=== PATIENT | female | born 1980 | race Caucasian/White ===

== ENCOUNTER 2016-10-06 17:24 | Emergency (ER) | payer OTHER ==
[2016-10-06 17:29] VITALS: TEMP 98.1
--- NOTE | 2016-10-06 17:40 | CPEKG ---
Heart Rate: 83 RR Interval: 723 P-R Interval: 140 QRSD Interval: 90 QT Interval: 396 QTC Interval: 466 P Hudson: -7 QRS Hudson: -11 T Wave Hudson: 13 EKG Severity - NORMAL ECG - EKG Impression: SINUS RHYTHM Electronically Signed By: Ac Claros 06-Oct-2016 23:10:05
--- NOTE | 2016-10-06 17:53 | EDPHY ---
HPI/HX/ROS/PE/MDM Narrative: CHIEF COMPLAINT: Scapular and chest pain. HISTORY OF PRESENT ILLNESS: The patient is a 36-year-old female presenting with sudden onset of left scapular pain that started about 1 hour ago, at 4:30 p.m. The patient was seated in a meeting when she developed the stabbing pain in her back. She states the scapular pain feels similar to the discomfort after a laprosopic procedure. It radiated into her left jaw and down her left arm. She reports associated chest tightness, like she can't get a deep breath. She went to the urgent care at [facility] and was sent here for further evaluation. Patient additionally notes recent palpitations that occur intermittently. No recent changes in medications. No fever, chills, nausea, vomiting, diarrhea, urinary complaints, headache, lightheadedness. Patient relates a history of asthma although she has not used her inhalers for quite some time. REVIEW OF SYSTEMS: Aside from elements discussed in the HPI, a comprehensive 10-point review of systems was reviewed and is negative. 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 VITAL SIGNS: Reviewed by me GENERAL: Well-developed, well-nourished, slightly anxious appearing. HEENT: Atraumatic. Eyes: No icterus, no injection. Mouth: moist mucous membranes. No erythema or lesions. Neck: supple with no adenopathy. LUNGS: Diminished breaths sounds on the left. CARDIAC: Regular rate and rhythm, no rubs, murmurs or gallops. CHEST: No palpable chest wall tenderness. ABDOMEN: Soft, No upper abdominal tenderness. Epigastric pain. Patient does have mild right lower quadrant tenderness which she reports is chronic from her endometriosis. No guarding or rebound. BACK: No CVA tenderness. EXTREMITIES: No trauma. No edema. Range of motion is normal throughout. Radial pulses equal bilaterally. NEURO: Alert and oriented, grossly nonfocal. SKIN: Warm and dry, no rash. No diaphoresis. PSYCHIATRIC: Normal mentation, no agitation. Portions of this note were transcribed by a coroner/medical examiner. I personally performed a history, physical exam, medical decision making, and confirmed accuracy of information the transcribed note. ED Course: Patient presents with sudden onset of scapular pain that radiates into her left jaw and down her left arm. She describes a sharp, stabbing pain. She has associated chest tightness that is worse with deep inhalation. Plan for cardiac work up. Chest x-ray is consistent with airways disease. Patient received a DuoNeb as well as an albuterol treatment.. Troponin is negative. Lab work is unremarkable. 7:05 p.m.: I reevaluated the patient, her symptoms have improved after DuoNeb, she has increased air movement and reports the chest tightness has diminished. Her back pain has also improved. She continues to have some anterior chest discomfort. 7:45 p.m.: I reevaluated the patient, she is feeling better after albuterol. She no longer has left arm or anterior chest pain. I held a long discussion with the patient. This is a 36-year-old female with no cardiac risk factors (although her family history is unknown) presenting with left scapular pain radiating toward her left jaw, anterior chest tightness, and tingling in her left arm. EKG has no ischemic changes. Troponin is negative. Chest x-ray is consistent with airways disease. Patient did have a albuterol neb as well as a DuoNeb. Following these treatments her respiratory status has improved, she is moving better air, she no longer feels chest tightness. We discussed admission to the hospital for stress testing in the morning and serial troponins. We discussed 4 hour troponin and close follow-up. Plan for repeat Troponin. Repeat troponin was negative. Patient continued to rest comfortably. Will follow up with her PCP at [facility] tomorrow to arrange further evaluation and cardiology consult. Patient understands that CAD cannot be fully excluded without provocative testing. Understands limitations to our work up here as well as negative findings here. MDM: After history and physical examination, the differential for patient symptoms was considered, including but not limited to, myocardial ischemia, acute coronary syndrome, pulmonary embolus, chest wall pain, pleural inflammation, ptx , bronchospasm, asthma exacerbation and pulmonary infectious causes. - Data Points Imaging: Discussed imaging studies w/ order desk caller Radiologist, I viewed and interpreted images myself Laboratory Results: Laboratory Results 10/06/16 17:43 10/06/16 17:43 Medications Given: Discontinued Medications Acetaminophen (Tylenol) 1,000 mg PO EDNOW ONE Stop: 10/06/16 17:58 Last Admin: 10/06/16 18:01 Dose: 1,000 mg Albuterol (Proventil Neb) 3 ml IH EDNOW ONE Stop: 10/06/16 18:36 Last Admin: 10/06/16 18:44 Dose: 3 ml Albuterol Sulfate (Proventil Inh Prepack) 1 mdi TAKEHOME EDNOW ONE Stop: 10/06/16 22:40 Last Admin: 10/06/16 23:00 Dose: 1 mdi Albuterol/Ipratropium (Duoneb) 3 ml IH EDNOW ONE Stop: 10/06/16 18:36 Last Admin: 10/06/16 18:45 Dose: 3 ml Aspirin (Aspirin) 324 mg PO EDNOW ONE Stop: 10/06/16 17:58 Last Admin: 10/06/16 18:01 Dose: 324 mg General Time Seen by Provider: 10/06/16 17:43 Initial Vital Signs: Initial Vital Signs Temperature (C) 36.7 C 10/06/16 17:25 Heart Rate 87 10/06/16 17:25 Respiratory Rate 16 10/06/16 17:25 Blood Pressure 136/92 H 10/06/16 17:25 O2 Sat (%) 99 10/06/16 17:25 O2 Delivery Mode Room Air Allergies/Adverse Reactions: azithromycin Allergy (Verified 08/24/12 17:47) Home Medications: Medication Instructions Recorded Adderall 10 mg Tablet 10/06/16 Buspar (*) 10/06/16 Clonazepam 10/06/16 Methocarbamol 10/06/16 OXcarbazepine 10/06/16 Trazodone HCl 10/06/16 Vistaril 10/06/16 Wellbutrin 75mg (*) 10/06/16 Departure - Departure Disposition: Home, Routine, Self-Care Clinical Impression: Atypical chest pain, airways disease acute Condition: Good Instructions: Chest Pain (ED), Asthma (ED) Additional Instructions: Use the inhaler as directed for shortness of breath. Please contact your primary care physician tomorrow to arrange cardiology follow -up. I recommend Ibuprofen (Motrin, Advil) or Naproxen Sodium (Aleve) for pain and anti-inflammatory effects. You may take either one, but do not take both. Your dose is: Ibuprofen 600 mg every 6-8 hours with food. OR Naproxen Sodium ( Aleve) 220 mg every 12 hours. If if you develop recurrent symptoms, developed anterior chest pain, shortness of breath, nausea, vomiting, sweating, dizziness, or fainting, please return to the emergency department or seek care urgently. Referrals: Francia Barkley MD [[facility] Primary Care Provider] - As per Instructions Report Scribed for: Maribel Rocha Report Scribed by: Valencia Love Date of Report: 10/06/16 Time of Report: 17:57
[2016-10-06] MEDS ORDERED: ASPIRIN 81 MG CHEWABLE TAB PO ONE (17:57)
[2016-10-06] MEDS ORDERED: ACETAMINOPHEN 500 MG TAB PO ONE (17:57)
[2016-10-06 18:00] LABS: % IMMATURE GRANULYOCYTES 0.2 % (0.0-1.1); ABSOLUTE IMMATURE GRANULOCYTES 0.02 10^3/uL (0.00-0.10); ADD DIFF? NO; ADD MORPH? NO; ADD SCAN? NO; ATYPICAL LYMPHOCYTE FLAG 0 (0-99); FRAGMENT RBC FLAG 0 (0-99); HEMOGLOBIN 14.2 g/dL (12.6-16.3); LEFT SHIFT FLG 0 (0-99); LIPEMIA HEMOLYSIS FLAG 80 (0-99); MEAN CELL HEMOGLOBIN 29.1 pg (27.9-34.1); MEAN CELL VOLUME 88.1 fL (81.5-99.8); MEAN PLATELET VOLUME 11.8 fL (8.7-11.7); PLATELET CLUMPS FLAG 0 (0-99); PLATELET COUNT 232 10^3/uL (150-400); RED BLOOD CELL COUNT 4.88 10^6/uL (4.18-5.33); RED CELL DISTRIBUTION WIDTH 14.6 % (11.5-15.2)
[2016-10-06 18:18] LABS: ANION GAP 12 mEq/L (8-16); CALCIUM 9.1 mg/dL (8.5-10.4); CARBON DIOXIDE 24 mEq/l (22-31); CHLORIDE 104 mEq/L (97-110); CREATININE 0.9 mg/dL (0.6-1.0); GLOMERULAR FILTRATION RATE > 60; GLUCOSE 83 mg/dL (70-100); POTASSIUM 3.8 mEq/L (3.5-5.2); SODIUM 140 mEq/L (134-144)
[2016-10-06 18:28] LABS: ALBUMIN 4.6 g/dL (3.5-5.0); BILIRUBIN,TOTAL 0.6 mg/dL (0.1-1.4); BILIRUBIN-CONJUGATED 0.2 mg/dL (0.0-0.5); BILIRUBIN-UNCONJUGATED 0.4 mg/dL (0.0-1.1)
[2016-10-06 18:30] LABS: TROPONIN I < 0.012 ng/mL (0-0.034)
[2016-10-06] MEDS ORDERED: ALBUTEROL 3 ML DEYVIAL IH ONE (18:35)
[2016-10-06] MEDS ORDERED: IPRATROPIUM/ALBUTEROL 3 ML DEYVIAL IH ONE (18:35)
[2016-10-06] MEDS ORDERED: NITROGLYCERIN 0.4 MG BTL SL PRN (19:09)
[2016-10-06] MEDS ORDERED: ALBUTEROL INH PREPACK MDI TAKEHOME ONE (22:39)
[2016-10-06 23:08] VITALS: BP 124/93; PULSE 78; O2SAT 94
[2016-10-06 23:11] VITALS: RESP 18
== END 2016-10-06 23:00 | disposition home or self-care (01) ==
DX: R07.89 Other chest pain (principal); J45.909 Unspecified asthma, uncomplicated

== ENCOUNTER 2017-05-27 10:11 | Emergency (ER) | payer OTHER ==
[2017-05-27] MEDS ORDERED: fentaNYL 100 MCG/2 ML INJ IVP ONE (10:20)
[2017-05-27 10:34] VITALS: TEMP 97.9; O2SAT 98
[2017-05-27 10:49] LABS: PLATELET COUNT 207 10^3/uL (150-400)
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
[2017-05-27] MEDS ORDERED: IOPAMIDOL (ISOVUE-300) 100 ML BTL ONE (11:04)
[2017-05-27 12:22] VITALS: BP 131/83; PULSE 88; RESP 16
== END 2017-05-27 12:22 | disposition home or self-care (01) ==
LOC: EDUNIT#
DX: T14.8XXA Other injury of unspecified body region, initial encounter (principal); J45.909 Unspecified asthma, uncomplicated; V47.5XXA Car driver injured in collision with fixed or stationary object in traffic accident, initial encounter; Y92.410 Unspecified street and highway as the place of occurrence of the external cause; Y99.8 Other external cause status; Y93.89 Activity, other specified
CPT/HCPCS: 82947-QW; 96374; J3010; Q9967